=== PATIENT | female | born 1990 | race Caucasian/White ===

== ENCOUNTER 2021-12-05 17:46 | Outpatient (CLI) | payer OTHER, SELFPAY ==
[2021-12-05 20:48] LABS: Basophils Absolute Auto 0.1 K/mm3 (0.0-0.1); Basophils Percent Auto 0.5 % (0.2-1.2); Eosinophils Absolute Auto 0.1 K/mm3 (0-0.3); Eosinophils Percent Auto 0.7 % (0-4.4); Hematocrit 38.2 % (37.0-47.0); Hemoglobin 12.6 g/dL (12.0-15.0); Immature Granulocyte Absolute 0.15 K/mm3 (0.00-0.031); Immature Granulocyte Percent A 1.1 % (0-0.5); Lymphocytes Absolute Auto 2.09 K/mm3 (0.9-3.2); Lymphocytes Percent Auto 15.2 % (18.3-44.2); Mean Platelet Volume 11.1 fl (7.4-10.4); Monocytes Absolute Auto 1.1 K/mm3 (0.1-0.6); Monocytes Percent Auto 7.8 % (2.6-8.5); Neutrophils Absolute Auto 10.3 K/mm3 (1.3-6.7); Neutrophils Percent Auto 74.7 % (45.5-73.1); Platelet Count Result 240 k/mm3 (150-375); Red Blood Count 4.34 M/mm3 (4.2-5.4); Red Cell Distribution Width 14.3 % (11.5-14.5); White Blood Count 13.8 K/mm3 (4.5-10.0)
[2021-12-05 20:55] LABS: Creatinine Urine 45.1 mg/dL; Total Protein Urine Random 7 mg/dL; Ur Ttl Prot Creatinine Ratio 0.16 mg/mg (0-0.20)
[2021-12-05 21:02] LABS: Add Urine Microscopic? YES; Appearance Urine Cloudy (Clear); Bacteria Urine Trace /hpf; Bilirubin Urine Negative (Negative); Blood Urine Negative (Negative); Color Urine Yellow (Yellow); Glucose Urine UA Negative (Negative); Ketones Urine 2+ mg/dL (Negative); Leukocyte Esterase Ur 2+ LEU/UL (NEGATIVE); Mucus Urine Rare /lpf; Nitrate Urine Negative (Negative); Protein Urine Negative (Negative); Specific Grav Ur 1.011 (1.001-1.035); Squamous Epithelial Cell Urine Few /hpf (Few); Urobilinogen Urine Negative mg/dL (<2.0); WBC Urine 16-20 /hpf (0-3)
[2021-12-05 21:04] LABS: Alanine Aminotransferase 15 U/L (6-35); Albumin Level 4.1 g/dL (3.5-5.1); Alkaline Phosphatase 163 U/L (38-126); Anion Gap 8 mmol/L (8-16); Aspartate Amino Transferase 19 U/L (14-36); Bilirubin,Total 0.4 mg/dL (0.2-1.3); Blood Urea Nitrogen 9 mg/dL (7-17); Calcium 9.5 mg/dL (8.4-10.2); Carbon Dioxide 20 mmol/L (22-30); Chloride 104 mmol/L (98-107); Estimated Glomerular Filt Rate > 60; Glucose 83 mg/dL (65-110); Potassium 3.9 mmol/L (3.4-5.0); Sodium 132 mmol/L (137-145)
== END 2021-12-05 20:45 | disposition home or self-care (01) ==
PROVIDERS: Advanced Practice Midwife; PCP Nurse Practitioner Family; Visit Provider Obstetrics & Gynecology
DX: O13.9 Gestational [pregnancy-induced] hypertension without significant proteinuria, unspecified trimester (principal); Z3A.00 Weeks of gestation of pregnancy not specified
CPT/HCPCS: 36415; 59025; 80053; 81001; 82570; 84156; 84550; 85025

== ENCOUNTER 2021-12-10 17:03 | Inpatient (IN) | payer OTHER, SELFPAY ==
[2021-12-10] VITALS (52 sets, daily range): BP systolic 100–149; BP diastolic 50–99; PULSE 78–229; TEMP 36.6–36.9; O2SAT 98–100; BMI 25.8
--- OUTSIDE RECORDS SUMMARY | 2021-12-10 17:30 | XMS_ITS | Encounter Summary ---
:1990 Author Reason for Visit OB visit OB [id number] EDC12/06/2021 LMP 03/01/2021 Assessment and Plan Assessment Note Patient is _34__weeks . Discuss ed plan. 1. Routine care Discussion Note: None recorded.Patient educational handouts: No information available. Plan of Care Reminders Provider Appointments U/S OB BPP 12/12/2021 4:30PM Ultrasound T DAPHNEY castillo ? Ob Routine 12/12/2021 5:00PM Juliet quintana CNM ? Nst 12/12/2021 4:00PM Nst, , EQUIP Lab None recorded. ? ? Referral None recorded. ? ? Procedures None recorded. ? ? Surgeries None recorded. ? ? Imaging None recorded. ? ? Medications Name Start Date ? ? Adult Aspirin 81 mg tablet ? ? valacyclovir 500 mg tablet ? TAKE 1 TABLET BY MOUTH EVERY 12 HOURS FOR 1 DAY Medications Administered None recorded. Vitals Height Weight BMI Blood Pressure 5 ft 4 in 148 lbs 25.4 kg/m2 114/73 mm[Hg] Results Lab Results None recorded. Allergies Code Code System Name Reaction Severity Onset Penicillin Rash Mild to Moderate ? 12682 RxNorm Sulfabenzamide Rash Mild ? Problems Name Status Onset Date Source ? Active 05/31/2021 ? History of SARS-CoV-2 Active 08/07/2021 ? Procedures Date Name Performed by ? 10/03/2021 US, Obstetric, Follow-up [place] [address] [place] [address]
--- OUTSIDE RECORDS SUMMARY | 2021-12-10 17:30 | XMS_ITS ---
:1990 Author Care Team Providers Name Role Phone HUYEN COVINGTON Primary Care Provider [phone] Allergies Code Code System Name Reaction Severity Status Onset Penicillins Hives ? Active ? Sulfa (Sulfonamide Antibiotics) Other ? Active ? Medications No Medications Reported Problems No Known Problems Procedures Date Name Performed by ? 03/30/2018 US, Echocardiogram Information not avai lable Notes: Pt. denies Results Lab Results Date Name Specimen Result Interpretation Description Value Range Status Address ? 05/31/2019 TSH + ? Tsh 3.490 0.450-4.500 Final [facility]: Free T4, uIU/mL uIU/mL [address] , [place] ? ? ? T4,Free(direct 1.55 0.82-1.77 Final [facility]: ) NG/dL NG/dL [address], [place] 05/31/2019 CBC W/ ? Wbc 10.2 3.4-10.8 Final [facility]: Auto x10e3/u x10e3/uL [address] , [place] ? ? ? Rbc 5.05 3.77-5.28 Final [facility] : x10e6/u x10e6/uL [address], [place] ? ? ? Hemoglobin 14.0 11.1-15.9 Final [facility]:
--- OUTSIDE RECORDS SUMMARY | 2021-12-10 17:30 | XMS_ITS | Encounter Summary ---
:1990 Author Reason for Visit None recorded. Assessment and Plan None recorded.Discussion Note: None recorded.Patient educational handouts: No information available. Plan of Care Reminders Provider Appointments U/S OB BPP 12/12/2021 4:30PM Ultrasound T wo, TECH ? Ob Routine 12/12/2021 5:00PM Juliet quintana [...] 1 DAY Medications Administered None recorded. Vitals Weight Blood Pressure 151 lbs 139/88 mm[Hg] Results Lab Results None recorded. Allergies Code Code System Name Reaction Severity Onset Penicillin Rash Mild to Moderate ? 11682 RxNorm Sulfabenzamide Rash Mild ? Problems Name Status Onset Date Source ? Active 05/31/2021 ? History of SARS-CoV-2 Active 08/07/2021 ? Procedures Date Name Performed by ? 10/31/2021 US, Obstetric, Follow-up [place] [address] [place] [address] (Work Place) Vaccine List None recorded. Social History Tobacco Smoking Status Never Smoker Do you have difficulty walking or climbing stairs? N What type of diet are you follow
--- OUTSIDE RECORDS SUMMARY | 2021-12-10 17:30 | XMS_ITS | Encounter Summary ---
:1990 Author Reason for Visit OB visit OB [id number] EDC 12/06/2021 LMP 03/01/2021 Assessment and Plan Assessment Note Patient is _37__weeks . Discuss ed plan. 1. Routine care [...] BMI Blood Pressure 5 ft 4 in 150 lbs 25.7 kg/m2 123/83 mm[Hg] Results Lab Results None recorded. Allergies Code Code System Name Reaction Severity Onset Penicillin Rash Mild to Moderate ? 52318 RxNorm Sulfabenzamide Rash Mild ? Problems Name Status Onset Date Source ? Active 05/31/2021 ? History of SARS-CoV-2 Active 08/07/2021 ? Procedures Date Name Performed by ? 10/31/2021 US, Obstetric, Follow-up [place] [address] [place] [address]
--- OUTSIDE RECORDS SUMMARY | 2021-12-10 17:30 | XMS_ITS | Encounter Summary ---
:1990 Author Reason for Visit OB visit; blood pressure [id number] OB w/ BP check Assessment and Plan Assessment Note Patient is __40_weeks . Discuss ed plan. 1. Routine care [...] BMI Blood Pressure 5 ft 4 in 150.4 lbs 25.8 kg/m2 142/84 mm[Hg] Results Lab Results None recorded. Allergies Code Code System Name Reaction Severity Onset Penicillin Rash Mild to Moderate ? 11354 RxNorm Sulfabenzamide Rash Mild ? Problems Name Status Onset Date Source ? Active 05/31/2021 ? History of SARS-CoV-2 Active 08/07/2021 ? Procedures None recorded. Vaccine List None recorded. Social History Tobacco Smoking Status Never Smoker Do you have difficulty walking or climbing stairs? N What type of diet are you following? REGULAR What is the highest grade or level of school you
--- OUTSIDE RECORDS SUMMARY | 2021-12-10 17:30 | XMS_ITS | Encounter Summary ---
:1990 Author Reason for Visit OB visit OB [id number] EDC 12/06/2021 LMP 03/01/2021 Assessment and Plan Assessment Note Patient is __39_weeks . Discuss ed plan. 1. Routine care Discussion Note: None recorded.Patient educational handouts: No information available. Plan of Care Reminders Provider Appointments U/S OB BPP 12/12/2021 4:30PM Ultrasound DAPHNEY Love ? Ob Routine 12/12/2021 5:00PM Juliet quintana [...] BMI Blood Pressure 5 ft 4 in 151.8 lbs 26.1 kg/m2 (1) 154/103 mm[ Hg] (2) 168/110 mm[H g] Results Lab Results None recorded. Allergies Code Code System Name Reaction Severity Onset Penicillin Rash Mild to Moderate ? 04948 RxNorm Sulfabenzamide Rash Mild ? Problems Name Status Onset Date Source ? Active 05/31/2021 ? History of SARS-CoV-2 Active 08/07/2021 ? Procedures None recorded. Vaccine List None recorded. Social History Tobacco Smoking Status Never Smoker Do you have difficulty walking or climbing stairs? N What type of diet are you fo
--- OUTSIDE RECORDS SUMMARY | 2021-12-10 17:30 | XMS_ITS | Encounter Summary ---
:1990 Author Reason for Visit OB visit OB [id number] EDC 12/06/2021 LMP 03/01/2021 Assessment and Plan Assessment Note Patient is _30__weeks . Discuss ed plan. 1. Routine care [...] BMI Blood Pressure 5 ft 4 in 144 lbs 24.7 kg/m2 113/70 mm[Hg] Results Lab Results None recorded. Allergies Code Code System Name Reaction Severity Onset Penicillin Rash Mild to Moderate ? 52925 RxNorm Sulfabenzamide Rash Mild ? Problems Name Status Onset Date Source ? Active 05/31/2021 ? History of SARS-CoV-2 Active 08/07/2021 ? Procedures Date Name Performed by ? 09/05/2021 US, Obstetric, Follow-up [place] [address] [place] [address]
--- OUTSIDE RECORDS SUMMARY | 2021-12-10 17:30 | XMS_ITS | Encounter Summary ---
:1990 Author Reason for Visit None recorded. Assessment and Plan 1. Pre-existing maternal disease compli cating ? US, obstetric, follow-up Discussion Note: None recorded.Patient educational handouts: No information available. Plan of Care Reminders Provider Appointments U/S OB BPP 12/12/2021 4:30PM Ultrasound T wo, TECH ? Ob Routine 12/12/2021 5:00PM Juliet quintana CNM ? Nst 12/12/2021 4:00PM Nst, , EQUIP Lab None recorded. ? ? Referral None recorded. ? ? Procedures None recorded. ? ? Surgeries None recorded. ? ? Imaging US, Obstetric, Follow-up 10/03/2021 Ruth gonzalez Medications Name Start Date ? ? Adult Aspirin 81 mg tablet ? ? valacyclovir 500 mg tablet ? TAKE 1 TABLET BY MOUTH EVERY 12 HOURS FOR 1 DAY Medications Administered None recorded. Vitals None recorded. Results Lab Results None recorded. Allergies Code Code System Name Reaction Severity Onset Penicillin Rash Mild to Moderate ? 42694 RxNorm Sulfabenzamide Rash Mild ? Problems Name Status Onset Date Source ? Active 05/31/2021 ? History of SARS-CoV-2 Active 08/07/2021 ? Procedures Date Name Performed by ? 09/05/2021 US, Obstetric, Follow-up [place] [address] [place] [address] (Work Place) 10/03/2021 US, Obstetric, Follow-up [place] [address]
--- OUTSIDE RECORDS SUMMARY | 2021-12-10 17:30 | XMS_ITS | Encounter Summary ---
:1990 Author Reason for Visit OB visit OB [id number] EDC 12/06/2021 LMP 03/01/2021 Assessment and Plan Assessment Note Patient is __36_weeks . Discuss ed plan. 1. Routine care [...] ft 4 in 150 lbs 25.7 kg/m2 116/83 mm[Hg] Results Lab Results None recorded. Allergies Code Code System Name Reaction Severity Onset Penicillin Rash Mild to Moderate ? 45179 RxNorm Sulfabenzamide Rash Mild ? Problems Name Status Onset Date Source ? Active 05/31/2021 ? History of SARS-CoV-2 Active 08/07/2021 ? Procedures Date Name Performed by ? 10/31/2021 US, Obstetric, Follow-up [place] [address] [place] [address]
--- OUTSIDE RECORDS SUMMARY | 2021-12-10 17:30 | XMS_ITS | Encounter Summary ---
:1990 Author Reason for Visit None recorded. Assessment and Plan 1. Pre-existing maternal disease compli cating ? US, obstetric, follow-up 2. COVID-19 Discussion Note: None recorded.Patient educational handouts: No information available. Plan of Care Reminders Provider Appointments U/S OB BPP 12/12/2021 4:30PM Ultrasound T wo, TECH ? Ob Routine 12/12/2021 5:00PM Juliet quintana CNM ? Nst 12/12/2021 4:00PM Nst, , EQUIP Lab None recorded. ? ? Referral None recorded. ? ? Procedures None recorded. ? ? Surgeries None recorded. ? ? Imaging US, Obstetric, Follow-up 10/31/2021 Ruth gonzalez Medications Name Start Date ? ? Adult Aspirin 81 mg tablet ? ? valacyclovir 500 mg tablet ? TAKE 1 TABLET BY MOUTH EVERY 12 HOURS FOR 1 DAY Medications Administered None recorded. Vitals None recorded. Results Lab Results None recorded. Allergies Code Code System Name Reaction Severity Onset Penicillin Rash Mild to Moderate ? 33241 RxNorm Sulfabenzamide Rash Mild ? Problems Name Status Onset Date Source ? Active 05/31/2021 ? History of SARS-CoV-2 Active 08/07/2021 ? Procedures Date Name Performed by ? 10/03/2021 US, Obstetric, Follow-up [place] [address] [place] [address] (Work Place) 10/31/2021 US, Obstetric, Follow-up [place] [address]
--- OUTSIDE RECORDS SUMMARY | 2021-12-10 17:30 | XMS_ITS ---
:1990 Author Care Team Providers Name Role Phone Ron Juliet Pk Primary Care Provider Unavailable Allergies Code Code System Name Reaction Severity Status Onset Penicillin Rash Mild to Moderate Active ? 59488 RxNorm Sulfabenzamide Rash Mild Active ? Medications Name Status Start Date Stop Date ? ? Adult Aspirin 81 mg tablet Active ? Not a vailable ID NOW COVID-19 Test Kit Completed ? 022 TEST DIRECTED. Active ? Not available valacyclovir 500 mg tablet Active ? Not a vailable Problems Name Status Onset Date Source ? Active 05/31/2021 ? History of SARS-CoV-2 Active 08/07/2021 ? Procedures Date Name Performed by ? 05/31/2021 US, Obstetric, Nuchal Translucency Ruth gonzalez [address] [place] [address] (Work Place) 08/07/2021 US, Obstetric, 2Nd or 3Rd Trimester [facility] [place] [address] [place] [address] (Work [address]) 08/07/2021 , Obstetric, Transvaginal [place] [address] [place] [address] (Work Place) 09/05/2021 , Obstetric, Follow-up [place] [address] [place] [address] (Work Place) 10/03/2021 US, Obstetric, Follow-up [place]
--- OUTSIDE RECORDS SUMMARY | 2021-12-10 17:30 | XMS_ITS | Encounter Summary ---
:1990 Author Reason for Visit OB visit OB [id number] EDC 12/06/2021 LMP 03/01/2021 Assessment and Plan Assessment Note Patient is _28__weeks . Discuss ed plan. 1. Routine care [...] BMI Blood Pressure 5 ft 4 in 141 lbs 24.2 kg/m2 117/75 mm[Hg] Results Lab Results None recorded. Allergies Code Code System Name Reaction Severity Onset Penicillin Rash Mild to Moderate ? 38818 RxNorm Sulfabenzamide Rash Mild ? Problems Name Status Onset Date Source ? Active 05/31/2021 ? History of SARS-CoV-2 Active 08/07/2021 ? Procedures Date Name Performed by ? 09/05/2021 US, Obstetric, Follow-up [place] [address] [place] [address]
--- OUTSIDE RECORDS SUMMARY | 2021-12-10 17:30 | XMS_ITS | Encounter Summary ---
:1990 Author Reason for Visit OB visit OB [id number] EDC 12/06/2021 LMP 03/01/2021 Assessment and Plan Assessment Note Patient is __32_weeks . Discuss ed plan. 1. Routine care [...] ft 4 in 144 lbs 24.7 kg/m2 112/73 mm[Hg] Results Lab Results None recorded. Allergies Code Code System Name Reaction Severity Onset Penicillin Rash Mild to Moderate ? 19290 RxNorm Sulfabenzamide Rash Mild ? Problems Name Status Onset Date Source ? Active 05/31/2021 ? History of SARS-CoV-2 Active 08/07/2021 ? Procedures Date Name Performed by ? 10/03/2021 US, Obstetric, Follow-up [place] [address] [place] [address]
--- OUTSIDE RECORDS SUMMARY | 2021-12-10 17:30 | XMS_ITS | Encounter Summary ---
:1990 Author Reason for Visit OB visit OB [id number] EDC 12/06/2021 LMP 03/01/2021 Assessment and Plan Assessment Note Patient is _39__weeks . Discuss ed plan. 1. Routine care [...] BMI Blood Pressure 5 ft 4 in 151 lbs 25.9 kg/m2 (1) 125/91 mm[H g] (2) 140/90 mm[Hg ] Results Lab Results None recorded. Allergies Code Code System Name Reaction Severity Onset Penicillin Rash Mild to Moderate ? 54741 RxNorm Sulfabenzamide Rash Mild ? Problems Name Status Onset Date Source ? Active 05/31/2021 ? History of SARS-CoV-2 Active 08/07/2021 ? Procedures Date Name Performed by ? 10/31/2021 US, Obstetric, Follow-up [place] [address]
[2021-12-10 18:23] LABS: Basophils Absolute Auto 0.1 K/mm3 (0.0-0.1); Basophils Percent Auto 0.4 % (0.2-1.2); Eosinophils Percent Auto 0.1 % (0-4.4); Hematocrit 35.5 % (37.0-47.0); Hemoglobin 12.1 g/dL (12.0-15.0); Immature Granulocyte Absolute 0.15 K/mm3 (0.00-0.031); Lymphocytes Percent Auto 8.3 % (18.3-44.2); Mean Corpuscular HGB Conc 34.1 g/dl (32-36); Mean Corpuscular Hemoglobin 28.6 pg (26-34); Mean Corpuscular Volume 83.9 fl (80-100); Mean Platelet Volume 10.7 fl (7.4-10.4); Monocytes Absolute Auto 0.8 K/mm3 (0.1-0.6); Monocytes Percent Auto 5.7 % (2.6-8.5); Neutrophils Absolute Auto 12.2 K/mm3 (1.3-6.7); Neutrophils Percent Auto 84.5 % (45.5-73.1); Platelet Count Result 225 k/mm3 (150-375); Red Blood Count 4.23 M/mm3 (4.2-5.4); Red Cell Distribution Width 14.6 % (11.5-14.5); White Blood Count 14.4 K/mm3 (4.5-10.0)
--- NOTE | 2021-12-10 18:30 | WPDANESEPP ---
Anes - Eval Pre Procedure Procedure: Labor Epidural Date/Time: 12/10/21 18:30 Pre Op Diagnosis: Labor Patient Data Age: 31 Gender: F Height: Weight: Allergies Allergy/AdvReac Type Severity Reaction Status Date / Time Penicillins Allergy Unknown Rash Verified 11/10/21 15:41 Sulfa (Sulfonamide Allergy Unknown Rash Verified 11/10/21 15:41 Antibiotics) Home Medications Medication Instructions Recorded Confirmed Type aspirin 81 mg tablet,delayed 81 mg PO DAILY 11/10/21 11/10/21 History release (Adult Low Dose Aspirin) prenat.vits,rick,gjl-uell-gvpwc 1 tablet PO DAILY 11/10/21 11/10/21 History valacyclovir 500 mg tablet 500 mg PO DAILY 11/10/21 11/10/21 History (Valtrex) Laboratory Tests 12/10/21 12/10/21 12/10/21 18:09 18:09 18:09 WBC 14.4 K/mm3 H K/mm3 (4.5-10.0) RBC 4.23 M/mm3 M/mm3 (4.2-5.4) Hgb 12.1 g/dL g/dL (12.0-15.0) Hct 35.5 % L % (37.0-47.0) MCV 83.9 fl fl (80-100) MCH 28.6 pg pg (26-34) MCHC 34.1 g/dl g/dl (32-36) RDW 14.6 % H % (11.5-14.5) Plt Count 225 k/mm3 k/mm3 (150-375) MPV 10.7 fl H fl (7.4-10.4) Immature Gran % (Auto) 1.0 % H % (0-0.5) Neut % (Auto) 84.5 % H % (45.5-73.1) Lymph % (Auto) 8.3 % L % (18.3-44.2) [place] % (Auto) 5.7 % % (2.6-8.5) Eos % (Auto) 0.1 % % (0-4.4) Baso % (Auto) 0.4 % % (0.2-1.2) Lymph # (Auto) 1.20 K/mm3 K/mm3 (0.9-3.2) [place] # (Auto) 0.8 K/mm3 H K/mm3 (0.1-0.6) Eos # (Auto) 0.0 K/mm3 K/mm3 (0-0.3) Baso # (Auto) 0.1 K/mm3 K/mm3 (0.0-0.1) Abs Immat Gran (auto) 0.15 K/mm3 H K/mm3 (0.00-0.031) Absolute Neuts (auto) 12.2 K/mm3 H K/mm3 (1.3-6.7) Absolute Nucleated RBC 0.0 K/mm3 K/mm3 (0.0-0.012) Nucleated RBC % 0.0 % % (0.0-0.2) Sodium Pending Potassium Pending Chloride Pending Carbon Dioxide Pending Anion Gap Pending BUN Pending Creatinine Pending Estim Creat Clear Calc Pending Estimated GFR Pending Glucose Pending Uric Acid Pending Calcium Pending Total Bilirubin Pending AST Pending ALT Pending Alkaline Phosphatase Pending Total Protein Pending Albumin Pending RPR Pending Patient hx anesthesia problems: none Family hx anesthesia problems: none Results Review: All pre-operative results and documents have been reviewed as part of the pre-operative evaluation. [facility] Family History Family History Mother Breast cancer Father Hypertension Heart attack Other Patient's mother is Social History Social History Smoking status: Never smoker Alcohol intake: current Substance use: never Spiritual care concerns: No Exam Day of Procedure 12/10/21 18:30 Patient weight: overweight Heart: regular rate and rhythm Lungs: normal air movement Airway: Mallampati scale Neurological: alert and oriented
[2021-12-10 18:33] LABS: Alanine Aminotransferase 13 U/L (6-35); Albumin Level 3.6 g/dL (3.5-5.1); Alkaline Phosphatase 138 U/L (38-126); Anion Gap 13 mmol/L (8-16); Aspartate Amino Transferase 17 U/L (14-36); Bilirubin,Total 0.3 mg/dL (0.2-1.3); Blood Urea Nitrogen 10 mg/dL (7-17); Calcium 8.8 mg/dL (8.4-10.2); Carbon Dioxide 19 mmol/L (22-30); Chloride 103 mmol/L (98-107); Estimated Glomerular Filt Rate > 60; Glucose 102 mg/dL (65-110); Potassium 3.9 mmol/L (3.4-5.0); Sodium 135 mmol/L (137-145); Uric Acid 5.2 mg/dL (2.5-7.5)
--- NOTE | 2021-12-10 18:47 | LDADM ---
This patient, Vanessa Fallon, was admitted to Labor/Delivery/Recovery 106 on 12/10/21 at 17:03. Plans for labor, pain management and were discussed with patient. Patient/family oriented to hospital policies and general routines including ID bracelet, bed and alarms, visiting hours, pain management, procedures, bathroom and other care routines, personal items, smoking policy, room service/diet and guest tray routines, security routines, and visiting hours. Patient/Family are encouraged to report perceived risks to care and to ask questions if they do not understand what they are told or what they should do. See [facility]BIX for further documentation.
[2021-12-10] MEDS: LACTATED RINGERS 1,000 ML 125 ML IV CONT ×3 (19:59→21:59)
--- NOTE | 2021-12-10 21:34 | WPDOBADMIT ---
Obstetrics - Admit Note Admission Note: record reviewed. No pertinent additions to the history and/or any subsequent changes in the physical findings that are not consistent with the expected course of the were found. pt admitted in labor, GHTN, labs drawn Additions to the history and/or subsequent changes in the physical findings follow. None.
--- NOTE | 2021-12-10 21:51 | PM.OBPNVD ---
OB - PN: Subj Subjective Date/time seen: 12/10/21 21:51 SVE 7/80/-1, arom large amount of clear odorless fluid OB - PN: Obj Data Labs CBC & Chem 7: 12/10/21 18:09 12/10/21 18:09 Labs: Laboratory Results - last 24 hr 12/10/21 12/10/21 12/10/21 18:09 18:09 18:09 WBC 14.4 H RBC 4.23 Hgb 12.1 Hct 35.5 L MCV 83.9 MCH 28.6 MCHC 34.1 RDW 14.6 H Plt Count 225 MPV 10.7 H Immature Gran % (Auto) 1.0 H Neut % (Auto) 84.5 H Lymph % (Auto) 8.3 L [place] % (Auto) 5.7 Eos % (Auto) 0.1 Baso % (Auto) 0.4 Lymph # (Auto) 1.20 [place] # (Auto) 0.8 H Eos # (Auto) 0.0 Baso # (Auto) 0.1 Abs Immat Gran (auto) 0.15 H Absolute Neuts (auto) 12.2 H Absolute Nucleated RBC 0.0 Nucleated RBC % 0.0 Sodium 135 L Potassium 3.9 Chloride 103 Carbon Dioxide 19 L Anion Gap 13 BUN 10 Creatinine 0.50 L Estim Creat Clear Calc Not Reportable Estimated GFR > 60 Glucose 102 Uric Acid 5.2 Calcium 8.8 Total Bilirubin 0.3 AST 17 ALT 13 Alkaline Phosphatase 138 H Total Protein 7.0 Albumin 3.6 Blood Type A Positive Antibody Screen Negative OB - PN A/P Time Spent With Patient Time: Total time spent is greater than 50% in coordination of care (as documented) at patient's floor/unit and/or counseling patient:
[2021-12-11] VITALS (61 sets, daily range): BP systolic 86–195; BP diastolic 35–124; PULSE 79–169; RESP 12–18; TEMP 36.5–37.3; O2SAT 96–99
[2021-12-11] MEDS: OXYTOCIN 30 UNITS/NS 500 ML 30 UNITS/500 ML BAG IV CONT (00:16)
--- NOTE | 2021-12-11 02:37 | PM.IMHP ---
H&P: HPI History of Present Illness Date/Time: 12/11/21 02:37 pt arrived 12/10/21 in active labor, complicated by hx Covid during , hx HSV. Pt had a couple elevated blood pressures w/o symptoms, labs wnl Chief Complaint: contractions Review of Systems Review of Systems: All systems reviewed & are unremarkable except as noted in HPI and below PMFSH Family History Family History Mother Breast cancer Father Hypertension Heart attack Other Patient's mother is Social History Social History Smoking status: Never smoker Alcohol intake: current Substance use: never Spiritual care concerns: No Meds Home Medications and Allergies Home Medications Medication Instructions Recorded Confirmed Type aspirin 81 mg tablet,delayed 81 mg PO DAILY 11/10/21 12/10/21 History release (Adult Low Dose Aspirin) prenat.vits,irck,rml-tggg-cobff 1 tablet PO DAILY 11/10/21 12/10/21 History valacyclovir 500 mg tablet 500 mg PO DAILY 11/10/21 12/10/21 History (Valtrex) Allergies Allergy/AdvReac Type Severity Reaction Status Date / Time Penicillins Allergy Unknown Rash Verified 12/10/21 19:01 Sulfa (Sulfonamide Allergy Unknown Rash Verified 12/10/21 19:01 Antibiotics) Vital Signs Vital Signs - 24 hr 12/10/21 18:32 12/10/21 18:10 12/10/21 19:04 Temperature 36.7 C Pulse Rate 92 93 Blood Pressure 113/84 112/75 Pulse Oximetry Oxygen Delivery 12/10/21 20:02 12/10/21 20:01 12/10/21 20:03 Temperature 36.6 C Pulse Rate 79 Blood Pressure 129/79 Pulse Oximetry 100 Oxygen Delivery 12/10/21 20:08 12/10/21 20:13 12/10/21 20:15 Temperature Pulse Rate 89 Blood Pressure 138/79 Pulse Oximetry 100 100 Oxygen Delivery 12/10/21 20:18 12/10/21 20:23 12/10/21 20:28 Temperature Pulse Rate Blood Pressure Pulse Oximetry 100 100 99 Oxygen Delivery 12/10/21 20:30 12/10/21 20:33 12/10/21 20:34 Temperature Pulse Rate 94 102 H Blood Pressure 149/73 H 130/86 Pulse Oximetry 99 Oxygen Delivery 12/10/21 20:35 12/10/21 20:36 12/10/21 20:38 Temperature Pulse Rate 116 H 104 H 105 H Blood Pressure 139/85 149/72 H 138/82 Pulse Oximetry 100 Oxygen Delivery 12/10/21 20:40 12/10/21 20:43 12/10/21 20:44 Temperature Pulse Rate 94 88 89 Blood Pressure 130/65 139/55 L 131/78 Pulse Oximetry 100 Oxygen Delivery 12/10/21 20:46 12/10/21 20:48 12/10/21 20:49 Temperature Pulse Rate 92 88 Blood Pressure 130/75 128/70 Pulse Oximetry 99 Oxygen Delivery 12/10/21 20:50 12/10/21 20:52 12/10/21 20:54 Temperature Pulse Rate 89 97 100 Blood Pressure 127/67 127/79 124/73 Pulse Oximetry 99 Oxygen Delivery 12/10/21 20:56 12/10/21 20:58 12/10/21 20:59 Temperature Pulse Rate 92 91 Blood Pressure 125/70 135/68 Pulse Oximetry 99 Oxygen Delivery 12/10/21 21:00 12/10/21 21:02 12/10/21 21:04 Temperature Pulse Rate 89 89 Blood Pressure 131/68 127/69 Pulse Oximetry 98 Oxygen Delivery 12/10/21 21:09 12/10/21 21:13 12/10/21 21:14 Temperature Pulse Rate 143 H Blood Pressure 139/90 Pulse Oximetry 100 100 Oxygen Delivery 12/10/21 21:15 12/10/21 21:18 12/10/21 21:24 Temperature Pulse Rate 137 H Blood Pressure 131/89 Pulse Oximetry 100 100 Oxygen Delivery 12/10/21 21:31 12/10/21 21:46 12/10/21 21:47 Temperature Pulse Rate 127 H 159 H 90 Blood Pressure 139/82 144/99 H 121/50 L Pulse Oximetry Oxygen Delivery 12/10/21 21:48 12/10/21 22:01 12/10/21 22:15 Temperature 36.6 C Pulse Rate 89 93 Blood Pressure 115/57 L 124/81 Pulse Oximetry Oxygen Delivery 12/10/21 22:30 12/10/21 22:46 12/10/21 22:53 Temperature 36.9 C Pulse Rate 229 H 92 Blood Pressure 119/76 116/61 Pulse O
[2021-12-11] MEDS: LACTATED RINGERS 1,000 ML 125 ML IV CONT (03:00)
--- NOTE | 2021-12-11 03:11 | PM.IMHP ---
H&P: HPI History of Present Illness Date/Time: 12/11/21 03:11 Chief Complaint: failure to progress, pt has been pushing without descent, FHR category 2 PMFSH Family History Family History Mother Breast cancer Father Hypertension Heart attack Other Patient's mother is Social History Social History Smoking status: Never smoker Alcohol intake: current Substance use: never Spiritual care concerns: No Meds Home Medications and Allergies Home Medications Medication Instructions Recorded Confirmed Type aspirin 81 mg tablet,delayed 81 mg PO DAILY 11/10/21 12/10/21 History release (Adult Low Dose Aspirin) prenat.vits,rick,[id number] 1 tablet PO DAILY 11/10/21 12/10/21 History valacyclovir 500 mg tablet 500 mg PO DAILY 11/10/21 12/10/21 History (Valtrex) Allergies Allergy/AdvReac Type Severity Reaction Status Date / Time Penicillins Allergy Unknown Rash Verified 12/10/21 19:01 Sulfa (Sulfonamide Allergy Unknown Rash Verified 12/10/21 19:01 Antibiotics) Vital Signs Vital Signs - 24 hr 12/10/21 18:32 12/10/21 18:10 12/10/21 19:04 Temperature 36.7 C Pulse Rate 92 93 Blood Pressure 113/84 112/75 Pulse Oximetry Oxygen Delivery 12/10/21 20:02 12/10/21 20:01 12/10/21 20:03 Temperature 36.6 C Pulse Rate 79 Blood Pressure 129/79 Pulse Oximetry 100 Oxygen Delivery 12/10/21 20:08 12/10/21 20:13 12/10/21 20:15 Temperature Pulse Rate 89 Blood Pressure 138/79 Pulse Oximetry 100 100 Oxygen Delivery 12/10/21 20:18 12/10/21 20:23 12/10/21 20:28 Temperature Pulse Rate Blood Pressure Pulse Oximetry 100 100 99 Oxygen Delivery 12/10/21 20:30 12/10/21 20:33 12/10/21 20:34 Temperature Pulse Rate 94 102 H Blood Pressure 149/73 H 130/86 Pulse Oximetry 99 Oxygen Delivery 12/10/21 20:35 12/10/21 20:36 12/10/21 20:38 Temperature Pulse Rate 116 H 104 H 105 H Blood Pressure 139/85 149/72 H 138/82 Pulse Oximetry 100 Oxygen Delivery 12/10/21 20:40 12/10/21 20:43 12/10/21 20:44 Temperature Pulse Rate 94 88 89 Blood Pressure 130/65 139/55 L 131/78 Pulse Oximetry 100 Oxygen Delivery 12/10/21 20:46 12/10/21 20:48 12/10/21 20:49 Temperature Pulse Rate 92 88 Blood Pressure 130/75 128/70 Pulse Oximetry 99 Oxygen Delivery 12/10/21 20:50 12/10/21 20:52 12/10/21 20:54 Temperature Pulse Rate 89 97 100 Blood Pressure 127/67 127/79 124/73 Pulse Oximetry 99 Oxygen Delivery 12/10/21 20:56 12/10/21 20:58 12/10/21 20:59 Temperature Pulse Rate 92 91 Blood Pressure 125/70 135/68 Pulse Oximetry 99 Oxygen Delivery 12/10/21 21:00 12/10/21 21:02 12/10/21 21:04 Temperature Pulse Rate 89 89 Blood Pressure 131/68 127/69 Pulse Oximetry 98 Oxygen Delivery 12/10/21 21:09 12/10/21 21:13 12/10/21 21:14 Temperature Pulse Rate 143 H Blood Pressure 139/90 Pulse Oximetry 100 100 Oxygen Delivery 12/10/21 21:15 12/10/21 21:18 12/10/21 21:24 Temperature Pulse Rate 137 H Blood Pressure 131/89 Pulse Oximetry 100 100 Oxygen Delivery 12/10/21 21:31 12/10/21 21:46 12/10/21 21:47 Temperature Pulse Rate 127 H 159 H 90 Blood Pressure 139/82 144/99 H 121/50 L Pulse Oximetry Oxygen Delivery 12/10/21 21:48 12/10/21 22:01 12/10/21 22:15 Temperature 36.6 C Pulse Rate 89 93 Blood Pressure 115/57 L 124/81 Pulse Oximetry Oxygen Delivery 12/10/21 22:30 12/10/21 22:46 12/10/21 22:53 Temperature 36.9 C Pulse Rate 229 H 92 Blood Pressure 119/76 116/61 Pulse Oximetry Oxygen Delivery 12/10/21 23:01 12/10/21 23:15 12/10/21 23:30 Temperature Pulse Rate 96 93 Blood Pressure 138/71 121/66 122/67 Pulse Oximetry Oxygen Delivery 12/10/21 23:45 10
[2021-12-11] MEDS: ceFAZolin 2 GM/D5W 50 ML 2 GM/50 ML BAG IVPB (03:26)
--- NOTE | 2021-12-11 04:21 | W.PM.PROC2 ---
Procedure Note - Detailed Date of Procedure 12/11/21 Pre-op Diagnosis Labor, nonreassuring FHt's, failure to descend Post-op Diagnosis Same Procedure Performed Low-transverse section Surgeon Cecy Malik MD Anesthesia Spinal Findings Normal gestational maternal anatomy, average size , normal Apgars. Description of Procedure The patient was taken the operating room. She was prepped and draped in dorsal supine position with a leftward tilt. This was done after spinal anesthetic was applied. A low-transverse skin incision was made and carried down till of the fascia with the knife. The fascial incision was made with the knife. The fascial incision was extended laterally with Winter scissors. The fascia was tented upward superiorly and inferiorly the rectus muscles were dissected off bluntly. The rectus muscles were the midline. The preperitoneal fat and peritoneum were dissected open bluntly at the superior aspect of the rectus muscles. The peritoneal incision was extended superior and inferior with good position of bladder. The uterine incision was made with a scalpel down to the level of the amniotic cavity. The amniotic cavity was entered bluntly. The was delivered. The cord was clamped and cut and the infant was handed off to waiting pediatric staff. Cord bloods were obtained. The placenta was removed manually. The uterus was exteriorized. The uterus was cleared of all clots, debris and membranes. The uterus was closed in 0 Vicryl running lock fashion. An imbricating over a was placed along the incision line as well. The uterus was returned to the abdomen. The gutters were cleared of all clots and debris. The fascia was closed with 0 Vicryl running fashion. The subcutaneous tissue was irrigated pinpoint bleeders were cauterized. The skin was closed with subcuticular absorbable reji. The skin incision line was covered with glue. The patient tolerated the procedure well. She has taken recovery room in stable condition. Sponge lap and needle counts were correct x2. Estimated Blood Loss 220 Complications No immediate complications Condition Stable Disposition PACU
[2021-12-11] MEDS: KETOROLAC 30 MG/ML VIAL (*BKC) IV PUSH ×2 (06:49→13:56)
--- NOTE | 2021-12-11 08:29 | OBPPTRN ---
0702 Patient transferred to post room #286 via stretcher. Support person present. Oriented to unit, room, information board, rooming in, admission packet and security measures. Patient verbalizes understanding.
[2021-12-11] MEDS: DEXTROSE 5%/0.45% SOD CHL 1,000 ML 125 ML IV CONT (11:19)
[2021-12-11 13:48] LABS: Rapid Plasma Reagin Non-Reactive (NonReactive)
[2021-12-11] MEDS: SIMETHICONE 80 MG TAB.CHEW PO (14:52)
--- NOTE | 2021-12-11 15:02 | PC.NURSE ---
[id number] Introductions were made, then consulted with patient to assess needs related to . Mother led the conversation with her?plans to feed?her infant and the?experience so far. Resources provided for inpatient and outpatient services using a resource guide and mom/baby guide. Mother voiced understanding of information and requests assistance. Father of baby assisted RN with repositioning mother in bed for comfort after section. Mother works well with her with encouragement and education. Father of baby is actively involved with care. Encouraged understanding of the benefits of skin to skin (unwrapping and placing vertically on her chest), responsive feeding and how to watch for early feeding signs, frequency of feeding on demand about every 8-12 times in 24 hours (every 2-3 hours), milk production, duration of feeding, signs of adequate intake/output and how to record on the feeding sheet. Reviewed positioning and ear, shoulder, hip alignment, supporting the breast, asymmetrical latch (off-center), and leading with the chin with a big open side gape. latched optimally to the left breast in football position. Education given to mother of how to visualize suck/swallow ratios and listen for drinking at the breast. Infant was able to maintain latch without discomfort to mother. Nipple care reviewed with optimal latch and good positioning. Reviewed good handwashing when or touching the breast/nipples to prevent infection. After infant breastfed for 10 min self detached. Infant placed skin to skin and was stimulated for active . After feeding cues were visualized, then infant was latched effectively to the right breast using football positioning without pain or discomfort to mother. Parents voiced understanding what a swallow looks and sounds like. Resources used to facilitate learning were used with the visual handout, tool, mom and baby guide. Mother voiced understanding of responsive feedings, stimulating with skin to skin, hand expressed colostrum, massage touch, talking to infant to encourage if it has been 2 -3 hours since the start of the last , to call if does not wake to latch, or there is discomfort with . Reported to the primary RN.
--- NOTE | 2021-12-11 15:08 | PC.NURSE ---
[id number] Purposefully rounded to assess how has been today. Mother states she had a good on the left breast with no pain. She has experienced painful latches and RN encouraged breaking the attached infant from the breast and obtaining an optimal latch with no pain. Mother is finishing up eating awaiting a medication, then the Parents plan to initiate soon and will call for assistance. Reported to the RN.
--- NOTE | 2021-12-11 15:48 | PC.NURSE ---
[id number] Called to the room for assisting with . is crying at the breast. Encouraged skin to skin, RN noticed a wet diaper and assists father of baby with the diaper change. RN assisted mother to move up in bed to be more comfortable for . Reviewed great positioning with mother placing to the right breast using football hold. Infant demonstrated big, open, wide gape and was brought effectively to the breast. Parents acknowledge hearing and visualizing swallowing at the breast. Mother denies discomfort. Infant is content, eyes open, effectively . Parents are encouraged and RN will follow up with them in the morning. Reported to primary RN.
[2021-12-11] MEDS: DOCUSATE SODIUM 100 MG CAPSULE PO (20:45)
[2021-12-12] MEDS: HYDROcodone/acetaminophen (*CRX) 5-325 MG TABLET 1 TAB PO ×4 (00:41→22:10)
[2021-12-12 04:20] VITALS: BP 109/62; PULSE 82; RESP 16; TEMP 36.9; O2SAT 98
[2021-12-12 05:17] LABS: Basophils Percent Auto 0.3 % (0.2-1.2); Eosinophils Absolute Auto 0.1 K/mm3 (0-0.3); Eosinophils Percent Auto 0.6 % (0-4.4); Hematocrit 27.4 % (37.0-47.0); Hemoglobin 9.2 g/dL (12.0-15.0); Immature Granulocyte Percent A 0.7 % (0-0.5); Lymphocytes Absolute Auto 1.85 K/mm3 (0.9-3.2); Lymphocytes Percent Auto 13.3 % (18.3-44.2); Mean Corpuscular HGB Conc 33.6 g/dl (32-36); Mean Corpuscular Hemoglobin 29.1 pg (26-34); Mean Corpuscular Volume 86.7 fl (80-100); Monocytes Absolute Auto 1.1 K/mm3 (0.1-0.6); Monocytes Percent Auto 8.2 % (2.6-8.5); Neutrophils Absolute Auto 10.7 K/mm3 (1.3-6.7); Neutrophils Percent Auto 76.9 % (45.5-73.1); Platelet Count Result 163 k/mm3 (150-375); Red Blood Count 3.16 M/mm3 (4.2-5.4); Red Cell Distribution Width 14.9 % (11.5-14.5)
--- NOTE | 2021-12-12 07:49 | WPDANLDPN2 ---
Anes-Prog Note L&D Date/Time: 12/12/21 07:49 Neuro status: Neuro function grossly intact. Vital Signs: Last Vital Signs Temp 36.9 C 12/12/21 04:20 Pulse 82 12/12/21 04:20 Resp 16 12/12/21 04:20 BP 109/62 12/12/21 04:20 Pulse Ox 98 12/12/21 04:20 O2 Del Method Room Air 12/12/21 04:20 Pain score (VAS): 0 I/O: Intake & Output 12/11/21 12/11/21 12/12/21 15:59 23:59 07:59 Intake Total 1000 1200 Output Total 1500 1325 Balance -500 -125 Patient feedback: Patient satisfied with anesthetic care.
--- NOTE | 2021-12-12 07:49 | WPDANLDNPN2 ---
Anes-Prog Note L&D-Neuraxial Date/Time: 12/12/21 07:49 Patient feedback: Patient satisfied with post-operative pain management.
[2021-12-12 08:00] VITALS: BP 113/71; PULSE 85; RESP 16; TEMP 37.1; O2SAT 99
--- NOTE | 2021-12-12 08:19 | P.PNOB_ITS ---
OB - PN: Subj Subjective Date/time seen: 12/12/21 08:19 s/p day 1, doing well, OB - PN: Obj Data Labs CBC & Chem 7: 12/12/21 04:58 12/10/21 18:09 Labs: Laboratory Results - last 24 hr 12/10/21 12/12/21 18:09 04:58 WBC 14.0 H RBC 3.16 L Hgb 9.2 L Hct 27.4 L MCV 86.7 MCH 29.1 MCHC 33.6 RDW 14.9 H Plt Count 163 MPV 11.0 H Immature Gran % (Auto) 0.7 H Neut % (Auto) 76.9 H Lymph % (Auto) 13.3 L [place] % (Auto) 8.2 Eos % (Auto) 0.6 Baso % (Auto) 0.3 Lymph # (Auto) 1.85 [place] # (Auto) 1.1 H Eos # (Auto) 0.1 Baso # (Auto) 0.0 Abs Immat Gran (auto) 0.10 H Absolute Neuts (auto) 10.7 H Absolute Nucleated RBC 0.0 Nucleated RBC % 0.0 RPR Non-reactive OB - PN A/P Plan day: 1 Comments: continue iron, work on increasing activity, pain management Time Spent With Patient Time: Total time spent is greater than 50% in coordination of care (as documented) at patient's floor/unit and/or counseling patient: Review of Systems Review of Systems: All systems reviewed & are unremarkable except as noted in HPI and below Exam Narrative: incision CDI Const: General: cooperative and healthy appearing
[2021-12-12] MEDS: SIMETHICONE 80 MG TAB.CHEW PO ×4 (08:36→22:10)
[2021-12-12] MEDS: DOCUSATE SODIUM 100 MG CAPSULE PO ×2 (08:39→17:40)
[2021-12-12] MEDS: POLYSACCHARIDE IRON COMPLEX 150 MG CAPSULE PO ×2 (08:39→17:40)
[2021-12-12] MEDS: IBUPROFEN 600 MG TABLET PO ×2 (08:41→17:41)
[2021-12-12] MEDS: HYDROcodone/acetaminophen (*CRX) 10-325 MG TABLET 1 TAB PO (12:34)
--- NOTE | 2021-12-12 12:50 | PC.NURSE ---
[id number] with patient to assess needs related to . Mother led conversation with her experience with feeding baby so far. Mother works well with her infant with encouragement. Reviewed working with infant, breast, nipples and how to protect the nipples with an optimal deep latch, good positioning, and good hand washing. Encouraged understanding the benefits of skin to skin, responding to feeding cues, frequencies of feeding 8-12 times in 24 hours (approximately 2-3 hours), duration of feedings, milk production, intake/output feeding sheet and signs of adequate intake encouraging swallowing at the breast. Reviewed positioning and alignment, supporting breast, off-centered (asymmetrical latch) and leading with the chin with big open wide gape. Infant latched optimally to the right breast in football position. Education given to mother of how to visualize suck/swallow ratios and drinking at the breast. Infant was able to maintain latch without discomfort to mother. Nipple care reviewed with optimal latch and good positioning. Resources used to facilitate learning were used from the tool. Mother voiced understanding of the education shared, calling for assistance if the does not latch or if there is discomfort with . Reported to the primary RN.
[2021-12-12 21:06] VITALS: BP 112/64; PULSE 65; RESP 16; TEMP 37; O2SAT 98
[2021-12-13] MEDS: HYDROcodone/acetaminophen (*CRX) 5-325 MG TABLET 1 TAB PO ×3 (04:30→14:07)
[2021-12-13] MEDS: SIMETHICONE 80 MG TAB.CHEW PO ×3 (04:30→14:07)
[2021-12-13 07:50] VITALS: BP 116/71; PULSE 67; RESP 16; TEMP 37.1; O2SAT 99
[2021-12-13] MEDS: DOCUSATE SODIUM 100 MG CAPSULE PO (08:02)
[2021-12-13] MEDS: POLYSACCHARIDE IRON COMPLEX 150 MG CAPSULE PO (08:03)
[2021-12-13] MEDS: IBUPROFEN 600 MG TABLET PO ×2 (08:03→14:08)
--- NOTE | 2021-12-13 08:18 | PM.OBPNVD ---
OB - PN: Subj Subjective Date/time seen: 12/13/21 08:18 Patient comments: no complaints, pain well controlled, incisional pain, tolerating diet and flatus present OB - PN: Obj Data Labs CBC & Chem 7: 12/12/21 04:58 12/10/21 18:09 OB - PN A/P Plan day: 2 Plan: routine care Comments: POD#2 LTCS - no problems, Time Spent With Patient Time: Total time spent is greater than 50% in coordination of care (as documented) at patient's floor/unit and/or counseling patient: Exam Const: General: comfortable, no acute distress and alert Resp: Effort & Inspection: normal respiratory effort Auscultation: no crackles, no rales and no rhonchi Cardio: Rate: regular rate Heart sounds: no click, no murmurs and no rubs GI: Inspection: non-distended GI Palp: No Tenderness to palpation present (GI) Auscultation: normal bowel sounds Other: Incision - CDI Extrem: General: normal to inspection, no pedal edema and no calf tenderness
--- NOTE | 2021-12-13 08:19 | PM.OBDSVD ---
DS: Admitting Diagnosis Discharge Date December 13, 2021 Admitting Diagnosis term OB - DS: Summary OB Procedures : None OB Procedures Intrapartum: OB Procedures: : None Peripartum Data Procedures: Procedures Operation Date: 12/11/21 03:15 Actual Procedure Side Surgeon p Section Cecy Malik MD Time Spent with Patient Time attestation: Total time spent providing and/or coordinating discharge services: DS: Data Data Completed and Pending Pending studies at discharge: Pending at discharge 12/11/21 05:10 Surgical [PTH] Routine Discharge Plan Discharge Consulting providers: Juliet Velasquez ; Sonia Ugarte ; Kimberly Suresh ; Kailyn Espinal Discharging Clinician: Cecy Malik Patient Disposition: Home, Self-Care Activity: pelvic rest Diet: regular Discharge Instructions: Education: Mom and Baby Guide Given to: Mother Follow-Up: Call your delivering provider's office for an appointment to be seen in: 1 Week Mom and baby should come to the [facility] for the follow-up appointment. Appointment Date/Time: December 14, 2021 at 9:00 am What to expect at your follow-up visit: Blood Pressure Check Physical Assessment Call [phone] if you are unable to keep your appointment time. BREAST CARE: * Wear a snug supportive bra. * For engorgement discomfort: Breast Feeding: * Apply warm moist washcloths * Express milk as needed to relieve engorgement * Wear loose clothing * For sore nipples: * Identify correct latch-on * Apply warm moist washcloths before and after nursing * Air dry nipples after nursing * May apply Lansinoh cream to nipples ABDOMINAL INCISION: (if applicable) * Allow incision to air dry * Do NOT use lotions for powders on your incision * When showering, allow soap and water to run over the incision, but do not wash incision PERINEAL CARE: * Until bleeding stops, use your shantel bottle after urinating * Change your pad frequently throughout the day * You may take sitz baths several times a day (fill your bathtub with warm water and soak for 20 minutes.) Do NOT bathe in the water * No tub baths until seen by your physician - You may shower ACTIVITY: * Rest as much as possible. * Do not exercise or lift anything heavier than your baby (such as laundry or other children.) * Avoid stairs or driving as much as possible. * Do not put anything into the vagina. No douching, tampons, or sexual activity until seen by physician. NOTIFY PHYSICIAN IF YOU HAVE ANY QUESTIONS OR IF ANY OF THE FOLLOWING SYMPTOMS OCCUR: * If your perineum and/or incision becomes red, swollen, or more painful than what you have experienced in the hospital. * If your vaginal bleeding becomes foul smelling. * If your vaginal bleeding becomes more heavy than a period or if your bleeding changes from pink to bright red. However, you may pass an occasional walnut-sized clot once or twice for the first week . * If you experience a sharp, shooting pain in you calves. * If you discover a hard, reddened area on your breast or if you experience flu-like symptoms. DIET: * Eat regular, well-balanced meals. * Drink plenty of fluids daily. If , drink to thirst. Patient Instructions: Antibiotic Form Stand Alone Forms: General Discharge Information Follow-up/Referrals: Cecy Malik MD [Physician] - Discharge Medications: New hydrocodone-acetaminophen 5-325 mg tablet 1 tablet PO Q4H PRN (Reason: pain) Qty: 25 0RF Continued valacyclovir [Valtrex] 500 mg Tablet 500 mg PO DAILY aspirin [Adult Low Dose Aspirin] 81 mg Tablet,Delayed Release (Dr/Ec) 81 mg PO DAILY prenat.vits,rick,[id number] Tablet 1 tablet PO DAILY Date of admission: 12/10/21 17:03 Primary Care Provider: Nikki Burns
--- NOTE | 2021-12-13 09:06 | WPDANLDPN2 ---
Anes-Prog Note L&D Date/Time: 12/13/21 09:06 Comfortable throughout: labor and delivery Neuraxial method: epidural Epidural/Spinal procedure site: clean & non-tender Neuro status: Neuro function grossly intact. Cardiovascular status: normal Respiratory status: normal Airway patency: baseline Mental status: baseline Post-Op hydration status: normal Vital Signs: Last Vital Signs Temp 37.1 C 12/13/21 07:50 Pulse 67 12/13/21 07:50 Resp 16 12/13/21 07:50 BP 116/71 12/13/21 07:50 Pulse Ox 99 12/13/21 07:50 O2 Del Method Room Air 12/12/21 21:06 Pain score (VAS): 3 Post-procedural complaints: none Patient feedback: Patient satisfied with anesthetic care. Other findings: pt reports gas pain - she is walking the halls to alleviate the pain
--- NOTE | 2021-12-13 09:07 | WPDANLDNPN2 ---
Anes-Prog Note L&D-Neuraxial Date/Time: 12/13/21 09:07 Neuraxial medications: intrathecal PF morphine Opiod-related complaints: none Patient feedback: Patient satisfied with post-operative pain management.
--- NOTE | 2021-12-13 11:02 | PC.NURSE ---
Patient viewed the discharge video Mother & Baby Care, The First Two Weeks online. Patient was given the opportunity and encouraged to ask questions. Patient verbalized understanding of information shared and has been given the mother/baby guide for home reference.
--- NOTE | 2021-12-13 13:23 | PC.NURSE ---
[id number] Mother led the conversation with her experience and plan to feed her so far and her ability to independently latch optimally without discomfort. Reminded parents to use good handwashing technique to prevent infection. Mother is feeding appropriately for growth of and understands stimulating to eat if needed. Infant has had appropriate feedings in the last 24 hours meets the outcomes for weight, output and jaundice at this time. Mother states she is confident to continue effectively her infant at home or when to call for assistance and denies any additional assistance or education at this time. Reinforced understanding of milk production, transition of milk, signs of adequate intake, prevention/relief of engorgement, responsive after visualizing feeding cues, the different methods of stimulating infant to breastfeed 2-3 hours after the start of the last feeding, community resources, medication information reviewed per [employer] and when to call a provider using the resource of the mom and baby guide/[facility] website. Mother voiced understanding of the education shared. Reported to the primary RN.
== END 2021-12-13 17:16 | disposition home or self-care (01) | DRG 540 ==
LOC: ANHLDR 12-11 05:54 → ANHOB2 12-11 07:07
PROVIDERS: Advanced Practice Midwife; Admitting Provider Obstetrics & Gynecology; PCP Nurse Practitioner Family; Visit Provider Obstetrics & Gynecology
PROC: 10D00Z1 Extraction of Products of Conception, Low, Open Approach (ICD-10-PCS; CPT 59514; principal; 2021-12-11 03:15)
DX: O32.4XX0 Maternal care for high head at term, not applicable or unspecified (principal); O98.52 Other viral diseases complicating childbirth; B00.9 Herpesviral infection, unspecified; O77.0 Labor and delivery complicated by meconium in amniotic fluid; O76 Abnormality in fetal heart rate and rhythm complicating labor and delivery; Z3A.40 40 weeks gestation of pregnancy; Z37.0 Single live birth
CPT/HCPCS: 36415; 80053; 84550; 85025; 86592; 86850; 86900; 86901; 88307; A9270; J0131; J0690; J1885; J2274; J2590; J2795; J7120